=== PATIENT | female | born 1965 | race Two or more races ===

== ENCOUNTER 2019-12-11 09:54 | Outpatient (CLI) | payer OTHER | END 2019-12-11 10:05 | disposition home or self-care (01) | LOC: SONOGRAMA 09:54 | PROVIDERS: ATTEND Specialist | DX: E04.1 Nontoxic single thyroid nodule (principal) ==

== ENCOUNTER 2020-10-27 14:23 | Inpatient (IN) | payer OTHER ==
[~2020-10-27] VITALS: Ht 165.1 cm; Wt 76.7 kg
[2020-10-29] MEDS ORDERED: ATORVASTATIN CA80 MG (16:35)
[2020-10-29] MEDS ORDERED: ST. JOSEPH ASPI81 M2 (16:35)
[2020-10-29] MEDS ORDERED: FENOFIBRATE160 MG (16:35)
[2020-10-29] MEDS ORDERED: OMEGA-3 ACID ETH1 GM (16:36)
[2020-11-02] MEDS ORDERED: ATORVASTATIN CA80 MG PO (07:47)
[2020-11-02] MEDS ORDERED: CIPRO500 MG PO (07:47)
== END 2020-11-02 12:55 | disposition home or self-care (01) | DRG 603 ==
LOC: ER 14:23 → MEDJ 17:55
PROVIDERS: ADMIT Internal Medicine; ATTEND Internal Medicine
DX: L03.116 Cellulitis of left lower limb (principal); Z20.822 Contact with and (suspected) exposure to COVID-19; E78.49 Other hyperlipidemia

== ENCOUNTER 2022-10-04 07:37 | Outpatient (CLI) | payer OTHER ==
[~2022-10-04 07:37] MED LIST: ATORVASTATIN CA80 MG; ATORVASTATIN CA80 MG PO; CIPRO500 MG PO; FENOFIBRATE160 MG; OMEGA-3 ACID ETH1 GM; ST. JOSEPH ASPI81 M2
== END 2022-10-04 07:45 | disposition home or self-care (01) ==
LOC: LAB 07:37
PROVIDERS: ATTEND Emergency Medicine Pediatric Emergency Medicine
DX: E55.9 Vitamin D deficiency, unspecified (principal); M50.00 Cervical disc disorder with myelopathy, unspecified cervical region; I73.9 Peripheral vascular disease, unspecified; I87.2 Venous insufficiency (chronic) (peripheral); M54.50 Low back pain, unspecified; E78.9 Disorder of lipoprotein metabolism, unspecified; I10 Essential (primary) hypertension; L03.032 Cellulitis of left toe; Z12.11 Encounter for screening for malignant neoplasm of colon; Z13.820 Encounter for screening for osteoporosis

== ENCOUNTER 2022-10-06 13:51 | Outpatient (CLI) | payer OTHER | END 2022-10-06 13:53 | disposition home or self-care (01) | LOC: NUCLEAR 13:51 | PROVIDERS: ATTEND Internal Medicine | DX: Z13.820 Encounter for screening for osteoporosis (principal); E55.9 Vitamin D deficiency, unspecified; M50.00 Cervical disc disorder with myelopathy, unspecified cervical region; I73.9 Peripheral vascular disease, unspecified; I87.2 Venous insufficiency (chronic) (peripheral); M54.50 Low back pain, unspecified; E78.9 Disorder of lipoprotein metabolism, unspecified; I10 Essential (primary) hypertension; L03.032 Cellulitis of left toe; Z12.11 Encounter for screening for malignant neoplasm of colon ==

== ENCOUNTER 2022-10-10 09:25 | Outpatient (CLI) | payer OTHER | END 2022-10-10 09:43 | disposition home or self-care (01) | LOC: RAD 09:25 | PROVIDERS: ATTEND Internal Medicine | DX: M50.00 Cervical disc disorder with myelopathy, unspecified cervical region (principal) ==

== ENCOUNTER 2023-06-20 08:59 | Outpatient (CLI) | payer OTHER | END 2023-06-20 09:11 | disposition home or self-care (01) | LOC: MAMO-SONO 08:59 | PROVIDERS: ATTEND Internal Medicine | DX: N60.02 Solitary cyst of left breast (principal) ==

== ENCOUNTER 2024-05-23 11:26 | Outpatient (CLI) | payer OTHER ==
[~2024-05-23 11:26] MED LIST changes: +DICLOFENAC SOD100 MG PO; +NORFLEX100MG PO
== END 2024-05-23 11:30 | disposition home or self-care (01) ==
LOC: RAD 11:26
PROVIDERS: ATTEND Physical Medicine & Rehabilitation
DX: M54.2 Cervicalgia (principal); M62.830 Muscle spasm of back; M54.6 Pain in thoracic spine

== ENCOUNTER 2024-06-25 12:19 | Outpatient (CLI) | payer OTHER | END 2024-06-25 12:26 | disposition home or self-care (01) | LOC: MAMO-SONO 12:19 | PROVIDERS: ATTEND Internal Medicine | DX: N63.0 Unspecified lump in unspecified breast (principal); N64.4 Mastodynia; N60.11 Diffuse cystic mastopathy of right breast; E55.9 Vitamin D deficiency, unspecified; M50.00 Cervical disc disorder with myelopathy, unspecified cervical region; I73.9 Peripheral vascular disease, unspecified; I87.2 Venous insufficiency (chronic) (peripheral); I10 Essential (primary) hypertension; L03.032 Cellulitis of left toe; Z12.11 Encounter for screening for malignant neoplasm of colon; Z13.820 Encounter for screening for osteoporosis; Z12.31 Encounter for screening mammogram for malignant neoplasm of breast ==